=== PATIENT | female | born 1965 | race Caucasian/White ===

== ENCOUNTER → 2016-10-17 | Outpatient (CLI) | payer OTHER ==
[2016-10-17 14:07] LABS: Basophils % (A) 1 %; CH 27.1; CHCM 31.5; Eosinophils # (A) 0.1 k/uL (0-0.7); Eosinophils % (A) 2 %; HCT 46.3 % (34.0-46.0); HDW 2.41; HGB 14.5 gm/dL (11.4-16.0); Hypochromasia Slight; Luc # (Auto) 0.09; Luc % (Auto) 2; Lymphocytes # (A) 1.7 k/uL (1.0-4.8); Lymphocytes % (A) 28 %; MCH 27.1 pg (25.0-35.0); MCHC 31.3 g/dL (31.0-37.0); MCV 86.6 fL (80.0-100.0); Mean Platelet Volume 7.5; Monocytes # (A) 0.2 k/uL (0-1.0); Monocytes % (A) 4 %; Neutrophils # (A) 3.7 k/uL (1.3-7.7); Neutrophils % (A) 64 %; RBC 5.35 m/uL (3.80-5.40); RDW 14.9 % (11.5-15.5); WBC 5.8 k/uL (3.8-10.6); WBC (Perox) 5.91
[2016-10-17 14:21] LABS: ALT 47 U/L (9-52); AST 32 U/L (14-36); Alkaline Phosphatase 68 U/L (38-126); Anion Gap 12 mmol/L; Blood Urea Nitrogen 19 mg/dL (7-17); Calcium 10.4 mg/dL (8.4-10.2); Carbon Dioxide 28 mmol/L (22-30); Chloride 103 mmol/L (98-107); Cholesterol 241 mg/dL (<200); Glucose 102 mg/dL (74-99); HDL Cholesterol 95 mg/dL (40-60); Non-African American GFR(MDRD) >60 (>60 ml/min/1.73 sqM); Potassium 4.8 mmol/L (3.5-5.1); Sodium 143 mmol/L (137-145); Total Bilirubin 0.8 mg/dL (0.2-1.3); Total Protein 7.9 g/dL (6.3-8.2); Triglycerides 135 mg/dL (<150); Uric Acid 4.5 mg/dL (3.7-7.4)
[2016-10-17 14:36] LABS: Appearance,Urine Cloudy (Clear); Bilirubin,Urine Negative (Negative); Glucose,Urine (UA) Negative (Negative); Ketones,Urine Negative (Negative); Leukocyte Esterase,Urine Negative (Negative); Mucus,Urine Few /hpf; Nitrite,Urine Negative (Negative); PH, Urine 5.5 (5.0-8.0); Particle Count 4646; Protein,Urine Negative (Negative); Specific Gravity,Urine 1.019 (1.001-1.035); Squamous Epithelial Cell,Urine 5 /hpf (0-4); UA Billing (MACRO vs. MICRO) MICRO; Urobilinogen,Urine <2.0 mg/dL (<2.0); WBC,Urine 2 /hpf (0-5)
[2016-10-17 20:07] LABS: Hemoglobin A1C 6.4 % (4.2-6.1)
== END | disposition home or self-care (01) ==
LOC: LABWHC1 13:33
PROVIDERS: ATTEND Internal Medicine
DX: Z00.00 Encounter for general adult medical examination without abnormal findings (principal); E55.9 Vitamin D deficiency, unspecified; R53.83 Other fatigue; R79.9 Abnormal finding of blood chemistry, unspecified; E88.9 Metabolic disorder, unspecified; E78.9 Disorder of lipoprotein metabolism, unspecified; E07.9 Disorder of thyroid, unspecified; R73.09 Other abnormal glucose
CPT/HCPCS: 36415; 80053; 80061; 81001; 82306; 83036; 84439; 84443; 84550; 85025

== ENCOUNTER 2016-11-28 22:35 | Emergency (ER) | payer SELFPAY ==
[2016-11-28] MEDS ORDERED: KETOROLAC 30 MG/ML 1 ML VIAL IVP STA (23:05)
[2016-11-28] MEDS ORDERED: diphenhydrAMINE 50 MG/ML 1 ML VIAL IVP STA (23:05)
[2016-11-28] MEDS ORDERED: METOCLOPRAMIDE 5 MG/ML 2 ML VIAL IVP STA (23:05)
[2016-11-28] MEDS ORDERED: DEXAMETHASONE SOD PHOSPHATE 10 MG/ML 1 ML VIAL IV STA (23:05)
[2016-11-28] MEDS ORDERED: SODIUM CHLORIDE 0.9% 1,000 ML IV STA (23:05)
--- NOTE | 2016-11-28 23:45 | ED ---
Back Pain HPI - General Chief Complaint: Back Pain/Injury Stated Complaint: Neck Pain Time Seen by Provider: 11/28/16 22:50 Source: patient Limitations: no limitations - History of Present Illness Initial Comments: The patient is a 51-year-old female who presents to ED with a chief complaint of neck pain. Patient states that the pain is located on the left side of her neck and radiates up the left side of her head. Patient states that she has chronic degenerative disc disease of her neck. She states that she has degenerative disc disease of C3, C4, C5, C6, C7. She states that this is gotten worse over the course of the past several years. The patient states that she used to take Roxicodone 15 mg twice a day but was taken off of this medication after there was some question of abuse. The patient states that she currently takes no narcotic medications. She states that normally her pain is under control. She notes that she thinks that she tweaked her neck while working at [employer] today. 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 She denies any weakness of the upper extremities. She denies any visual changes. The patient denies any falls. The patient states that she normally follows with her PCP for her medications. - Related Data Home Medications Medication Instructions Recorded Confirmed ALPRAZolam [Xanax] 1 mg PO Q8HR PRN 02/27/16 02/27/16 Diazepam [Valium] 1 tab PO DAILY PRN 02/27/16 02/27/16 Sertraline [Zoloft] 100 mg PO DAILY 02/27/16 02/27/16 oxyCODONE HCL [oxyCODONE HCL] 15 mg PO QID PRN 02/27/16 02/27/16 Previous Rx's Medication Instructions Recorded Lidocaine 5% Patch [Lidoderm] 1 patch TOPICAL DAILY #15 patch 02/27/16 Cyclobenzaprine [Flexeril] 10 mg PO HS #14 tablet 11/29/16 Gabapentin [Neurontin] 100 mg PO TID 14 Days 11/29/16 Allergies Allergy/AdvReac Type Severity Reaction Status Date / Time Sulfa (Sulfonamide Allergy Rash/Hives Verified 02/27/16 17:43 Antibiotics) prochlorperazine AdvReac Seizure Verified 02/27/16 19:43 [From Compazine] prochlorperazine edisylate AdvReac Seizure Verified 02/27/16 19:43 [From Compazine] prochlorperazine maleate AdvReac Seizure Verified 02/27/16 19:43 [From Compazine] Review of Systems ROS Statement: Those systems with pertinent positive or pertinent negative responses have been documented in the HPI. ROS Other: All systems not noted in ROS Statement are negative. Constitutional: Denies: fever, chills, weakness Eyes: Denies: eye pain ENT: Denies: ear pain, throat pain, dental pain Respiratory: Denies: cough, dyspnea, wheezes, hemoptysis, stridor Cardiovascular: Denies: chest pain, palpitations, dyspnea on exertion Endocrine: Denies: fatigue Gastrointestinal: Denies: abdominal pain, nausea, vomiting, diarrhea, constipation, hematemesis Genitourinary: Denies: urgency, dysuria, frequency, hematuria Musculoskeletal: Reports: back pain (pain in the cervical spine) Skin: Denies: rash, lesions, change in color Neurological: Reports: other (shooting pain up the left side of the head). Denies: headache, weakness, numbness, paresthesias Psychiatric: Denies: anxiety, depression Past Medical History Past Medical History: No Reported History Additional Past Medical History / Comment(s): chronic back pain History of Any Multi-Drug Resistant Organisms: None Reported Past Surgical History: Tonsillectomy, Uterine Ablation Past Psychological History: Anxiety, Depression, PTSD Smoking Status: Current every day smoker Past Alcohol Use History: None Reported Past Drug Use History: None Reported General Exam Limitations: no limitations General appearance: alert, in no apparent distress, other (overall eccentric appearance. Patient is initially wearing Korey Bandage around her neck. She has on a surgical mask. She has her eyes covered with a headband) Head exam: Present: atraumatic, normocephalic Eye exam: Present: normal appearance, PERRL, EOMI. Absent: scleral icterus, conjunctival injection Pupils: Present: normal accommodation, other (pupils are 4mm, equal and reactive ) ENT exam: Present: normal exam, mucous membranes dry Neck exam: Present: normal inspection, other ([id number] tenderness to palpation of the paraspinal musculature in the cervical region) Respiratory exam: Present: normal lung sounds bilaterally. Absent: respiratory distress, wheezes, rales, rhonchi, stridor Cardiovascular Exam: Present: normal rhythm, tachycardia GI/Abdominal exam: Present: soft. Absent: distended, tenderness, guarding, rebound Extremities exam: Present: normal inspection, full ROM, other (5/5 strength of the bilateral upper extremities) Back exam: Present: normal inspection, full ROM Neurological exam: Present: alert, oriented X3 Psychiatric exam: Present: normal affect, normal mood, other (somewhat eccentric behavior) Skin exam: Present: warm, dry, intact Course Vital Signs 11/28/16 11/28/16 22:37 23:23 Temperature 98.4 F 98.8 F Pulse Rate 106 H 100 Respiratory 18 18 Rate Blood Pressure 135/83 160/90 O2 Sat by Pulse 100 99 Oximetry Medical Decision Making - Medical Decision Making The patient is a 51-year-old female who presents to ED with a chief complaint of left-sided neck pain. Patient states the pain is consistent with past pain she has had with degenerative disc disease. Patient states that the pain starts along the left side of the paraspinal musculature in the cervical region and courses up the left side of her head. Patient denies any visual changes. Patient denies any weakness of upper or lower extremities. Patient able to ambulate without difficulty. Patient states that she used to take narcotics but this point in time but currently does not take any medications altogether. Patient denies any fevers or chills. 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 We will dose patient with migraine cocktail to see if this helps with her symptoms. Would prefer to hold off on narcotic pain medication given that patient has history of prior narcotic dependence. Will reassess after medications to see if this is help the patient. 12:20 AM The patient states that her pain has resolved with the medications provided to her today. Will discharge at this point in time. Patient will be discharged with prescriptions for Gabapentin and Flexeril. Patient instructed to only use Flexeril QHS. Encouraged patient to follow up with his PCP next week to arrange for nursing home pain management and management of her cervical spine pain. I have answered all of the patient's questions to her satisfaction. Encouraged her to return to the ED should her symptoms worsen. Disposition Clinical Impression: Muscle spasms of neck, Degenerative disc disease, cervical Disposition: HOME SELF-CARE Condition: Good Instructions: Spasmodic Torticollis (ED), Muscle Spasm (ED) Additional Instructions: Please follow up with your Primary Care Physician for further management of your medical problems. Prescriptions: Cyclobenzaprine [Flexeril] 10 mg PO HS #14 tablet Gabapentin [Neurontin] 100 mg PO TID 14 Days Referrals: Mark Nunez MD [Primary Care Provider] - 12/01/16 Time of Disposition: 00:25
[2016-11-29 00:50] VITALS: BP 118/65; PULSE 101; RESP 16; TEMP 98.3
== END 2016-11-29 00:53 | disposition home or self-care (01) ==
LOC: EC 22:35
DX: M62.838 Other muscle spasm (principal); M50.31 Other cervical disc degeneration, high cervical region; M50.321 Other cervical disc degeneration at C4-C5 level; M50.322 Other cervical disc degeneration at C5-C6 level; M50.323 Other cervical disc degeneration at C6-C7 level; F43.10 Post-traumatic stress disorder, unspecified; F32.9 Major depressive disorder, single episode, unspecified; F41.9 Anxiety disorder, unspecified; F17.200 Nicotine dependence, unspecified, uncomplicated; Z79.899 Other long term (current) drug therapy; Z88.2 Allergy status to sulfonamides; Z86.59 Personal history of other mental and behavioral disorders
CPT/HCPCS: 99283; 96374; 96375 ×3; 96361 ×2; J1200; J1100; J2765; J1885

== ENCOUNTER → 2017-04-30 | Outpatient (CLI) | payer OTHER ==
--- NOTE | 2017-04-30 14:32 | MR ---
EXAMINATION TYPE: MR cervical spine wo con DATE OF EXAM: 04/30/2017 2:22 PM COMPARISON: NONE HISTORY: other specified mononeuropathies, multiple neck injuries Multiplanar MultiSpin echo imaging of the cervical spine was performed. Comparison: none C2-C3: No evidence for degenerative disc disease. No disc bulge/herniation or protrusion. No Canal stenosis. Foramina are patent bilaterally. C3-C4: Mild disc desiccation noted. Posterior disc bulging with mild effacement ventral thecal sac. N o evidence for ventral CORD contact or foraminal encroachment. C4-C5: No evidence for degenerative disc disease. No disc bulge/herniation or protrusion. No Canal stenosis. Foramina are patent bilaterally. C5-C6: Moderate disc desiccation. Broad-based posterior subligamentous disc herniation effaces the ve ntral thecal sac. There is mild central stenosis. Mild ventral CORD contact. Bilateral right greater than left foraminal encroachment. No evidence for compressive myelopathy at this time. C6-C7: Moderate disc desiccation. Broad-based posterior subligamentous disc herniation effaces the ve ntral thecal sac. There is mild central stenosis. Mild ventral CORD contact. Bilateral foraminal encr oachment. No evidence for compressive myelopathy at this time. C7-T1: No evidence for degenerative disc disease. No disc bulge/herniation or protrusion. No Canal stenosis. Foramina are patent bilaterally. Cervical segments are intact. There is normal alignment. Cervical spinal cord is of normal signal. Craniovertebral junction relationships are within normal limits. IMPRESSION: 1. Degenerative disc disease as discussed. 2. Central stenosis at C5-6 and C6-7 with disc herniations and foraminal encroachment. See above.
== END | disposition home or self-care (01) ==
LOC: RADMRIMAIN 13:41
PROVIDERS: ATTEND Internal Medicine
DX: M48.02 Spinal stenosis, cervical region (principal); M50.222 Other cervical disc displacement at C5-C6 level; M50.30 Other cervical disc degeneration, unspecified cervical region
CPT/HCPCS: 72141